=== PATIENT | female | born 1965 | race Caucasian/White ===

== ENCOUNTER 2023-07-26 10:34 | Outpatient (CLI) | payer OTHER | END 2023-07-26 10:35 | disposition home or self-care (01) | LOC: CSHCT 10:34 | PROVIDERS: ATTEND Nurse Practitioner Family | DX: R10.32 Left lower quadrant pain (principal); K63.89 Other specified diseases of intestine; K57.30 Diverticulosis of large intestine without perforation or abscess without bleeding | CPT/HCPCS: 74176 ==

== ENCOUNTER 2025-07-30 08:33 | Outpatient (CLI) | payer OTHER | END 2025-07-30 08:34 | disposition home or self-care (01) | LOC: CSHMRI 08:33 | PROVIDERS: ATTEND Podiatrist | DX: S92.422G Displaced fracture of distal phalanx of left great toe, subsequent encounter for fracture with delayed healing (principal); M79.675 Pain in left toe(s); S92.902A Unspecified fracture of left foot, initial encounter for closed fracture; S96.812A Strain of other specified muscles and tendons at ankle and foot level, left foot, initial encounter; R93.6 Abnormal findings on diagnostic imaging of limbs ==